=== PATIENT | male | born 1945 | race Caucasian/White ===

== ENCOUNTER → 2017-10-04 | Outpatient (CLI) | payer MEDICARE, OTHER ==
[~2017-10-04] MED LIST: ASPI81CH PO; ATEN50 PO; FURO40 PO; FURO80 PO; GLIP2.5ER PO; IBUP400 PO; NITR.4SL SL; POTCHL20ER PO; Prinivil10 MG PO; TERA5 PO; TRIHYD5075 PO; ZESTORETIC 20-121 EA PO
== END | disposition home or self-care (01) ==
LOC: PLD 10:52 → LAB SHORT 10:52
DX: L57.0 Actinic keratosis (principal); Q44.7 Other congenital malformations of liver
CPT/HCPCS: 88305

== ENCOUNTER 2021-05-25 08:33 | Day surgery (SDC) | payer OTHER ==
[~2021-05-25] VITALS: Ht 175.3 cm; Wt 126.0 kg
[~2021-05-25 08:33] MED LIST changes: +FINA5 PO; +INSULANI SC; +JARDIANCE25 MG PO; +LISI20 PO; +METO25 PO; +PANT40 PO
--- NOTE | 2021-05-25 09:00 | NUR ---
PT ARRIVED BY HIMSELF,HAS NO NEXT OF KIN. HIS SON HAS . HAS A RIDE PAZ. Ambulatory in Day Surgery. History, Chart, Medications and Allergies reviewed before start of procedure. Lungs clear T/O to Auscultation. Patient confirms NPO status and agrees with scheduled surgery. Pre-Op teaching done. Pt verbalizes understanding. Patient States Post-Procedure ride home has been arranged.
--- NOTE | 2021-05-25 10:30 | NUR ---
05/25/21 1030 Isaak White NO ABX PER
--- NOTE | 2021-05-25 13:05 | NUR ---
Patient up to Ambulate independently. Gait steady. Discharge instructions reviewed with patient. Patient verbalizes understanding. Copy given to patient to take home. Dressing to procedure site clean, dry, intact with no visible drainage, swelling, erythema or bruising noted. Patient States Post-Procedure ride home has been arranged with friend Declan. Discharged via wheelchair to private car for ride home.
== END 2021-05-25 13:05 | disposition home or self-care (01) ==
LOC: ORSCMMR 08:33
PROVIDERS: Surgery
PROC: 0DJD8ZZ Inspection of Lower Intestinal Tract, Via Natural or Artificial Opening Endoscopic (ICD-10-PCS; principal; 2021-05-25 10:30)
PROC: 0DBQ7ZZ Excision of Anus, Via Natural or Artificial Opening (ICD-10-PCS; principal; 2021-05-25 10:30)
DX: K60.3 Anal fistula (principal); I10 Essential (primary) hypertension; E11.9 Type 2 diabetes mellitus without complications; Z79.4 Long term (current) use of insulin; G47.33 Obstructive sleep apnea (adult) (pediatric); K21.9 Gastro-esophageal reflux disease without esophagitis; Z79.899 Other long term (current) drug therapy; E66.01 Morbid (severe) obesity due to excess calories; Z68.41 Body mass index [BMI] 40.0-44.9, adult
CPT/HCPCS: 82947; J0171; J1100; J1885; J2250; J2405; J2704; J3010; J7120